=== PATIENT | female | born 1970 | race Caucasian/White ===

== ENCOUNTER 2017-10-28 16:18 | Emergency (ER) | payer BC ==
[2017-10-28 17:33] VITALS: BP 114/81
[2017-10-28] MEDS ORDERED: Tetan/Diph/Pertus SYR(Tdap)* 0.5 ML SYR(BOOSTRIX) use SYR IM ONE (18:05)
--- NOTE | 2017-10-28 18:11 | ED ---
Skin Complaint - HPI Summary HPI Summary: Finger laceration right middle finger on a dish while she was washing. She has no dm or medical problems. She cleaned it thoroughly. - History of Current Complaint Chief Complaint: UCLaceration Time Seen by Provider: 10/28/17 17:53 Stated Complaint: (R) MIDDLE FINGER Hx Obtained From: Patient Onset/Duration: Started Hours Ago Timing: Constant Onset Severity: Moderate Current Severity: None - She only has pain with bumping it. Pain Intensity: 1 Skin Location: Discrete Character: Pain Aggravating Symptom(s): Touch Alleviating Symptom(s): Nothing Associated Signs & Symptoms: Negative - Allergy/Home Medications Allergies/Adverse Reactions: Allergies Allergy/AdvReac Type Severity Reaction Status Date / Time albuterol Allergy Palpitation Verified 10/28/17 17:15 [From Proventil HFA] s Sulfa (Sulfonamide Allergy Rash Verified 10/28/17 17:15 Antibiotics) cefelosporin Allergy Rash Uncoded 10/28/17 17:15 Home Medications: Home Medications Estratest 10/28/17 [History] Ibuprofen 400 mg PO 10/28/17 [History] Levothyroxine Sodium [Synthroid] 25 mcg PO 10/28/17 [History] Spironolactone 100 mg PO 10/28/17 [History] PMH/Surg Hx/FS Hx/Imm Hx Previously Healthy: Yes Endocrine/Hematology History: Reports: Hx Thyroid Disease - hypo - Cancer History Cancer Type, Location and Year: melanoma - Surgical History Surgery Procedure, Year, and Place: hyster 2017. cone bx 1998. laparoscopy 1992, 2000, 2005 Infectious Disease History: Yes Infectious Disease History: Reports: Hx Shingles - age 9 Denies: Traveled Outside the [place] in Last 30 Days - Family History Known Family History: Positive: Other - no related FH. - Social History Occupation: Employed Full-time Alcohol Use: Rare Substance Use Type: Reports: None Smoking Status (MU): Former Smoker Review of Systems Skin: Other - laceration. All Other Systems Reviewed And Are Negative: Yes Physical Exam Triage Information Reviewed: Yes Vital Signs On Initial Exam: Initial Vitals Temp Pulse Resp BP Pulse Ox 99.5 F 60 16 114/81 99 10/28/17 17:23 10/28/17 17:23 10/28/17 17:23 10/28/17 17:23 10/28/17 17:23 Vital Signs Reviewed: Yes Appearance: Positive: Well-Appearing, No Pain Distress, Well-Nourished Skin: Positive: Other - laceration 1cm without redness, swelling drainage. Tip of right 3rd digit. Head/Face: Positive: Normal Head/Face Inspection Eyes: Positive: Normal ENT: Positive: Normal ENT inspection Neck: Positive: Supple, Nontender, No Lymphadenopathy Respiratory/Lung Sounds: Positive: Clear to Auscultation Cardiovascular: Positive: RRR, Pulses are Symmetrical in both Upper and Lower Extremities, Bradycardia Abdomen Description: Positive: No Organomegaly, Soft. Negative: Distended, Guarding Musculoskeletal: Positive: Normal Neurological: Positive: Normal, Sensory/Motor Intact, Alert, Oriented to Person Place, Time Psychiatric: Positive: Normal Diagnostics - Vital Signs Vital Signs Temp Pulse Resp BP Pulse Ox 10/28/17 17:23 99.5 F 60 16 114/81 99 - Laboratory Lab Statement: Any lab studies that have been ordered have been reviewed, and results considered in the medical decision making process. Course/Dx - Course Assessment/Plan: wound care described in detail. - Diagnoses Provider Diagnoses: Laceration Discharge - Sign-Out/Discharge Documenting (check all that apply): Discharge - Discharge Plan Condition: Stable Disposition: HOME Patient Education Materials: Finger Laceration (ED) Referrals: Non Staff,Doctor [Primary Care Provider] - - Billing Disposition and Condition Condition: STABLE Disposition: HOME
== END 2017-10-28 18:18 | disposition home or self-care (01) ==
LOC: UCCORT 16:18
DX: S61.212A Laceration without foreign body of right middle finger without damage to nail, initial encounter (principal); W25.XXXA Contact with sharp glass, initial encounter; Y93.G1 Activity, food preparation and clean up; Y92.9 Unspecified place or not applicable; Z88.1 Allergy status to other antibiotic agents; Z88.2 Allergy status to sulfonamides; Z88.8 Allergy status to other drugs, medicaments and biological substances; E03.9 Hypothyroidism, unspecified; Z87.891 Personal history of nicotine dependence
CPT/HCPCS: 90471; 90715; 99201; G0463